=== PATIENT | female | born 1995 | race Caucasian/White ===

== ENCOUNTER 2019-02-04 01:31 | Emergency (ER) | payer MEDICAID ==
[~2019-02-04] VITALS: Ht 167.6 cm; Wt 91.2 kg
[2019-02-04 01:35] VITALS: Ht 167.6 cm; Wt 91.2 kg
[2019-02-04 02:27] VITALS: BP 123/72
== END 2019-02-04 02:27 | disposition home or self-care (01) ==
LOC: ED 01:31
DX: J02.9 Acute pharyngitis, unspecified (principal); R13.12 Dysphagia, oropharyngeal phase; R06.02 Shortness of breath
CPT/HCPCS: J7512

== ENCOUNTER 2019-12-19 03:42 | Emergency (ER) | payer BC ==
[~2019-12-19] VITALS: Ht 167.6 cm; Wt 86.2 kg
[2019-12-19 03:50] VITALS: Ht 167.6 cm; Wt 86.2 kg
[2019-12-19 04:37] VITALS: BP 123/69
== END 2019-12-19 04:37 | disposition home or self-care (01) ==
LOC: ED 03:42
DX: K21.9 Gastro-esophageal reflux disease without esophagitis (principal)